=== PATIENT | male | born 1955 | race Caucasian/White ===

== ENCOUNTER 2018-06-06 20:32 | Emergency (ER) | payer OTHER ==
[~2018-06-06] VITALS: Ht 177.8 cm; Wt 95.3 kg
[~2018-06-06 20:32] MED LIST: ATACAND4 MG; LEXAPRO5 MG; SINGULAIR4 MG
[2018-06-06] MEDS ORDERED: VYTORIN 10-101 EACH (21:00)
[2018-06-06] MEDS ORDERED: WELLBUTRIN XL300 MG (21:01)
[2018-06-07] MEDS ORDERED: PERCOCET 5-3251 EACH PO (02:06)
== END 2018-06-07 02:18 | disposition home or self-care (01) ==
LOC: ER 20:32
DX: S30.0XXA Contusion of lower back and pelvis, initial encounter (principal); S00.83XA Contusion of other part of head, initial encounter; W10.8XXA Fall (on) (from) other stairs and steps, initial encounter; Y93.89 Activity, other specified; Y92.098 Other place in other non-institutional residence as the place of occurrence of the external cause; Y99.8 Other external cause status